=== PATIENT | female | born 1980 | race Caucasian/White ===

== ENCOUNTER 2025-02-27 21:40 | Emergency (ER) | payer OTHER, SELFPAY ==
[2025-02-27 21:59] VITALS: BP 155/91; PULSE 74; TEMP 36.6; O2SAT 97; BMI 27.0
--- NOTE | 2025-02-27 23:06 | ED.GENADUL1 ---
HPI HPI - General Adult General Chief complaint: Abdominal Pain Stated complaint: HERNIA Time Seen by Provider: 02/27/25 22:58 Source: patient Mode of arrival: walk-in Limitations: no limitations History of Present Illness HPI narrative: states he had left inguinal surgery about 6 months ago at another hospital. Now feels the site of the surgery is swelling again and he has pain. No fever or urinary symptoms. pain is mild. No vomiting. Related Data Home Medications ?Medication ?Instructions ?Recorded ?Confirmed aripiprazole 10 mg tablet mg 02/27/25 buspirone 15 mg tablet mg 02/27/25 clotrimazole 1 % topical cream applic topical 02/27/25 hydroxyzine pamoate 25 mg capsule mg 02/27/25 ibuprofen 800 mg tablet mg 02/27/25 lamotrigine 25 mg tablet mg 02/27/25 melatonin 10 mg capsule mg 02/27/25 olanzapine 5 mg tablet mg 02/27/25 omeprazole 20 mg capsule,delayed mg 02/27/25 release Allergies Allergy/AdvReac Type Severity Reaction Status Date / Time No Known Drug Allergies Allergy Verified 02/27/25 21:59 Opioid HPI Opioid Management Most Recent Opioid Data: No Data to Display Review of Systems ROS Status of ROS 10 or more systems reviewed and unremarkable except as noted in history and below [facility] Medical History (Updated 02/28/25 @ 06:46 by Sundeep Gonzalez MD) Hernia ?K46.9 - Unspecified abdominal hernia without obstruction or gangrene (ICD-10) Methamphetamine abuse ?F15.10 - Other stimulant abuse, uncomplicated (ICD-10) Surgical History (Updated 02/27/25 @ 22:47 by Kerri Kiser RN) History of hernia repair ?Z98.890 - Other specified postprocedural states (ICD-10) ?Z87.19 - Personal history of other diseases of the digestive system (ICD-10) Exam Constitutional Vital Signs, click to edit/add: Last Vital Signs Temp 97.9 F 02/27/25 21:59 Pulse 80 02/28/25 02:48 Resp 16 02/28/25 02:48 BP 155/91 H 02/27/25 21:59 Pulse Ox 98 02/28/25 02:48 O2 Del Method Room Air 02/28/25 02:48 Common normals: no apparent distress, average body habitus, oriented x3, no limitations, healthy appearing, alert and well nourished [facility] Common normals: normocephalic and head/scalp atraumatic Respiratory Common normals: normal respiratory effort, no retractions, no use of accessory muscles and clear to auscultation bilaterally Cardio Common normals: regular rate, regular rhythm, S1 normal heart sound and S2 normal heart sound GI Common normals: Normal to inspection, nondistended, normoactive bowel sounds present, soft to palpation and non-tender Other: mild swelling left inguinal area. No definite hernia and mild tenderness Extremity Common normals: normal to inspection and full ROM Neuro Common normals: oriented x3, CN's II-XII intact bilaterally and moves all extremities Course Vital Signs Vital signs: Vital Signs Temperature 97.9 F 02/27/25 21:59 Pulse Rate 74 02/27/25 21:59 Respiratory Rate 18 02/27/25 21:59 Blood Pressure 155/91 H 02/27/25 21:59 Pulse Oximetry 97 02/27/25 21:59 Oxygen Delivery Method Room Air 02/27/25 21:59 Temperature 97.9 F 02/27/25 21:59 Pulse Rate 80 02/28/25 02:48 Respiratory Rate 16 02/28/25 02:48 Blood Pressure 155/91 H 02/27/25 21:59 Pulse Oximetry 98 02/28/25 02:48 Oxygen Delivery Method Room Air 02/28/25 02:48 Medical Decision Making MDM Narrative Medical decision making narrative: patient with past history of recent left inguinal herniorrhaphy . Now presents complaining of discomfort at the site and concern he may have another hernia. exam with mild bulging and easy reduction. workup initiated including lab s and CT. labs returned WNL. Patient decided to leave because he did not want to wait for the CT results. Patient signed out AMA CT did return after he had departed and demonstrated bilat inguinal hernia-small. Lab Data Labs: Lab Results 02/27/25 Range/Units 23:50 WBC 6.4 (4.0-11.0) 10^3/uL RBC 5.01 (4.20-5.40) 10^6/uL Hgb 15.1 (12.0-16.0) g/dL Hct 43.9 (36.0-48.0) % MCV 87.6 (81.0-99.0) fL MCH 30.1 (26.7-34.0) pg MCHC 34.4 (29.9-35.2) g/dL RDW 13.0 (11.0-15.0) % Plt Count 339 (150-450) 10^3/uL MPV 10.6 (9.5-13.5) fL Neut % (Auto) 58.1 (43.0-75.0) % Lymph % (Auto) 32.6 (20.5-60.0) % [place] % (Auto) 5.8 (1.7-12.0) % Eos % (Auto) 2.3 (0.9-7.0) % Baso % (Auto) 0.9 (0.2-2.0) % Neut # (Auto) 3.7 (1.4-6.5) 10^3/uL Lymph # (Auto) 2.1 (1.2-3.8) 10^3/uL [place] # (Auto) 0.4 (0.3-0.8) 10^3/uL Eos # (Auto) 0.2 (0.0-0.7) 10^3/uL Baso # (Auto) 0.1 (0.0-0.1) 10^3/uL Abs Immat Gran (auto) 0.02 (0.00-0.03) 10^3/uL Imm/Tot Granulo (auto) 0.3 (0.0-0.5) % Sodium 141 (136-145) mmol/L Potassium 3.9 (3.5-5.1) mmol/L Chloride 105 (98-107) mmol/L Carbon Dioxide 27.0 (21.0-32.0) mmol/L Anion Gap 12.9 BUN 19.0 H (7.0-18.0) mg/dL Creatinine 0.93 (0.55-1.02) mg/dL Est GFR ( Amer) >60 (>=60 mL/min/1.73m^2) Est GFR (Non-Af Amer) >60 (>=60 mL/min/1.73m^2) BUN/Creatinine Ratio 20.4 Glucose 90 (74-106) mg/dL Calcium 9.2 (8.5-10.1) mg/dL Discharge Plan Discharge Stand Alone Forms: Portal Instructions Chief Complaint: Abdominal Pain Clinical Impression: Bilateral inguinal hernia (BIH) Patient Disposition: Left Against Medical Advice Prescriptions / Home Meds: No Action ibuprofen 800 mg tablet olanzapine 5 mg tablet lamotrigine 25 mg tablet omeprazole 20 mg capsule,delayed release(DR/EC) clotrimazole 1 % cream TOPICAL buspirone 15 mg tablet hydroxyzine pamoate 25 mg capsule aripiprazole 10 mg tablet melatonin 10 mg capsule Print Language: Irish Referrals: Physician,Non-Staff, MD [Primary Care Provider] - 1 week Discharge Date/Time: 02/28/25 02:51
[2025-02-28 00:44] LABS: Basophils Absolute Auto 0.1 10^3/uL (0.0-0.1); Basophils Percent Auto 0.9 % (0.2-2.0); Eosinophils Absolute Auto 0.2 10^3/uL (0.0-0.7); Eosinophils Percent Auto 2.3 % (0.9-7.0); Hematocrit 43.9 % (36.0-48.0); Hemoglobin 15.1 g/dL (12.0-16.0); Immature Granulocytes Abs Auto 0.02 10^3/uL (0.00-0.03); Immature Granulocytes Pct Auto 0.3 % (0.0-0.5); Lymphocytes Absolute Auto 2.1 10^3/uL (1.2-3.8); Lymphocytes Percent Auto 32.6 % (20.5-60.0); Mean Corpuscular HGB Conc 34.4 g/dL (29.9-35.2); Mean Corpuscular Hemoglobin 30.1 pg (26.7-34.0); Mean Corpuscular Volume 87.6 fL (81.0-99.0); Mean Platelet Volume 10.6 fL (9.5-13.5); Monocytes Absolute Auto 0.4 10^3/uL (0.3-0.8); Monocytes Percent Auto 5.8 % (1.7-12.0); Neutrophils Absolute Auto 3.7 10^3/uL (1.4-6.5); Neutrophils Percent Auto 58.1 % (43.0-75.0); Platelet Count 339 10^3/uL (150-450); Red Blood Count 5.01 10^6/uL (4.20-5.40); White Blood Count 6.4 10^3/uL (4.0-11.0)
[2025-02-28 00:56] LABS: Anion Gap 12.9; BUN Creatinine Ratio 20.4; Calcium 9.2 mg/dL (8.5-10.1); Chloride 105 mmol/L (98-107); Estimated GFR (African America >60 (>=60 mL/min/1.73m^2); Estimated GFR (Non-African Ame >60 (>=60 mL/min/1.73m^2); Glucose 90 mg/dL (74-106); Potassium 3.9 mmol/L (3.5-5.1); Sodium 141 mmol/L (136-145)
[2025-02-28 02:48] VITALS: PULSE 80; O2SAT 98
== END 2025-02-28 02:51 | disposition left against medical advice (07) ==
PROVIDERS: Emergency Provider Internal Medicine
DX: K40.20 Bilateral inguinal hernia, without obstruction or gangrene, not specified as recurrent (principal); Z53.29 Procedure and treatment not carried out because of patient's decision for other reasons
CPT/HCPCS: 36415; 74177; 80048; 85025; 99285; Q9967